=== PATIENT | female | born 2000 | race African-American/Black ===

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

== ENCOUNTER 2019-04-29 02:34 | Emergency (ER) | payer OTHER ==
[~2019-04-29] VITALS: Ht 165.1 cm; Wt 96.2 kg
[~2019-04-29 02:34] MED LIST changes: +CLOTRIMAZOLE15 GM TOPIC; +FLUCONAZOLE100 MG ORAL; +HYDROCORTISONE30 G2 TP
[2019-04-29] MEDS ORDERED: ABILIFY10 MG ORAL (02:42)
[2019-04-29 02:52] VITALS: BP 115/58
--- NOTE | 2019-04-29 02:54 | NUR ---
ED Nurse Note: Patient walked in to ER c/o cough. AAO x4, VSS at this time.
[2019-04-29] MEDS ORDERED: PREDNISONE20 MG ORAL (03:11)
--- NOTE | 2019-04-29 03:12 | Emergency Room Report ---
History of Present Illness General Chief Complaint: Upper Respiratory Illness Source: Patient Present Illness HPI This is a 18-year-old female with a history of asthma. She is here with her mom with chief complaint of cough. Mom had this symptom for a week and 1/2 to 2 weeks. Patient just started tonight. No wheezing. No nausea no vomiting. No fever chills. Allergies: Coded Allergies: No Known Allergies (Unverified , 10/15/12) Patient History Past Medical History: see triage record, old chart reviewed, asthma Past Surgical History: none Pertinent Family History: none Social History: Denies: smoking Last Menstrual Period: 04/14/19 Now: No Immunizations: UTD Reviewed Nursing Documentation: PMH: Agreed; PSxH: Agreed Nursing Documentation-PMH Past Medical History: No History, Except For Hx Cardiac Problems: No Hx Asthma: Yes Hx Gastrointestinal Problems: No History Of Psychiatric Problem: Yes - Depression Hx Neurological Problems: No Review of Systems Eye: Denies: eye pain, blurred vision ENT: Denies: ear pain, nose congestion, throat swelling Respiratory: Reports: cough; Denies: shortness of breath Cardiovascular: Denies: chest pain, palpitations Gastrointestinal: Denies: abdominal pain, diarrhea, nausea, vomiting Musculoskeletal: Denies: back pain, joint pain Skin: Denies: rash Neurological: Denies: headache, numbness Endocrine: Denies: increased thirst, increased urine Hematologic/Lymphatic: Denies: easy bruising All Other Systems: negative except mentioned in HPI Physical Exam Vital Signs Date Time Temp Pulse Resp B/P (MAP) Pulse Ox O2 Delivery O2 Flow Rate FiO2 04/29/19 02:39 99.0 78 18 115/58 (77) 95 Room Air Vitals normal Sp02 EP Interpretation: reviewed, normal General Appearance: well appearing, no apparent distress, alert Head: normocephalic, atraumatic Eyes: bilateral eye PERRL, bilateral eye EOMI ENT: hearing grossly normal, normal pharynx Neck: full range of motion, supple, no meningismus Respiratory: chest non-tender, lungs clear, normal breath sounds Cardiovascular #1: regular rate, rhythm, no murmur Gastrointestinal: normal bowel sounds, non tender, no mass, no organomegaly, no bruit, non-distended Musculoskeletal: back normal, gait/station normal, normal range of motion Psychiatric: mood/affect normal Skin: warm/dry Medical Decision Making Diagnostic Impression: Primary Impression: Upper respiratory infection Qualified Codes: J06.9 - Acute upper respiratory infection, unspecified ER Course Patient with an upper respiratory infection. Most likely viral in nature. No evidence of wheezing or pneumonia. I will prescribe prednisone but told patient to hold off if symptom is mild. If she started wheezing or coughing more, can fill the prescription. Last Vital Signs Date Time Temp Pulse Resp B/P (MAP) Pulse Ox O2 Delivery O2 Flow Rate FiO2 04/29/19 02:52 99.0 18 115/58 95 Room Air 04/29/19 02:52 78 Status: unchanged Disposition: HOME, SELF-CARE Condition: Stable Scripts Prednisone* (PREDNISONE*) 20 Mg Tablet 40 MG ORAL DAILY, #10 TAB Prov: Titi Rosario MD 04/29/19 Referrals: [facility],REFERR[facility] (PCP) Patient Instructions: Upper Respiratory Infection, Adult Additional Instructions: Follow-up with your doctor in 7 days. Fill Prednisone prescription if you are having wheezing or increasing cough. Return if worse. Titi Rosario MD Apr 29, 2019 03:12
--- NOTE | 2019-04-29 03:14 | NUR ---
ER DISCHARGE NOTE: Patient is cleared to be discharged per ERMD, pt is aox4, on room air, with stable vital signs. pt was given dc and prescription instructions, pt was able to verbalize understanding, pt id band removed without complications. pt is able to ambulate with steady gait. pt took all belongings.
[2019-04-29 03:16] VITALS: BP 120/60
== END 2019-04-29 03:15 | disposition home or self-care (01) ==
LOC: EMR 02:41
DX: J06.9 Acute upper respiratory infection, unspecified (principal); F32.9 Major depressive disorder, single episode, unspecified
CPT/HCPCS: 99282